=== PATIENT | female | born 1965 | race Caucasian/White ===

== ENCOUNTER 2022-07-03 14:28 | Emergency (ER) | payer OTHER ==
[~2022-07-03] VITALS: Ht 152.4 cm; Wt 62.6 kg
[2022-07-03 14:44] VITALS: BP 176/84
--- NOTE | 2022-07-03 14:47 | NUR ---
PT AMBULATED TO BED 9
[2022-07-03] MEDS ORDERED: NAPR-1704 PO (15:28)
[2022-07-03] MEDS ORDERED: DIPH25TA53 PO (15:28)
[2022-07-03] MEDS ORDERED: KETOROLAC 30 MG/ML VIAL IM ONE (15:30)
[2022-07-03] MEDS ORDERED: DEXAMETHASONE 10 MG/ML VIAL IM ONE (15:30)
--- NOTE | 2022-07-03 16:14 | NUR ---
Pt bibs for rash x 5 days after recieving flu shot. Pt workup started at triage by assist RN. Pt has red blanches on front of trunk. Pt states they itch and are painful. Pt states only hx is htn. Pt a/o x 4, vss (wiht note to elevated bp, states she forgot to take bp med but will take it when she gets home today. hydrochlorothiazide 12.5 mg according to pt), speech clear, breathing equal and unlabored, no ss of acute distres, steady gait witnessed, pt has been seen and dc'd by provider. Medicated as ordered, pt tolerated well. DC packet given and reviewed with pt.
[2022-07-03 16:28] VITALS: BP 172/77
== END 2022-07-03 16:28 | disposition home or self-care (01) ==
LOC: MED 14:28
DX: L50.9 Urticaria, unspecified (principal); M25.572 Pain in left ankle and joints of left foot; I10 Essential (primary) hypertension; Z79.899 Other long term (current) drug therapy
CPT/HCPCS: 96372; 99284; J1100; J1885